=== PATIENT | female | born 1965 | race Caucasian/White ===

== ENCOUNTER 2018-01-30 14:52 | Emergency (ER) | payer SELFPAY ==
[~2018-01-30] VITALS: Ht 165.1 cm; Wt 77.0 kg
[2018-01-30 14:57] VITALS: BP 158/92
[2018-01-30] MEDS ORDERED: IBUP200C5 PO (14:57)
== END 2018-01-30 16:04 | disposition left against medical advice (07) ==
LOC: EMS 14:54
DX: M25.512 Pain in left shoulder (principal); Z53.21 Procedure and treatment not carried out due to patient leaving prior to being seen by health care provider